=== PATIENT | male | born 1965 | race Two or more races ===

== ENCOUNTER 2021-03-07 06:56 | Outpatient (REF) | payer MEDICARE, SELFPAY ==
[2021-03-07 08:02] LABS: MANUAL DIFF FLAG NO
[2021-03-07 08:07] LABS: Basophils Absolute Auto 0.1 X10*3/uL (0.0-0.2); Basophils Percent Auto 0.8 % (0-2); Eosinophils Absolute Auto 0.3 X10*3/uL (0.0-0.4); Eosinophils Percent Auto 3.2 % (0-4); Hematocrit 40.7 % (42-52); Hemoglobin 13.5 g/dl (14.0-18.0); Imm Gran Abs Auto 0.03 X10*3/uL (0.00-0.03); Imm Gran Pct Auto 0.3 % (0.0-0.4); Lymphocytes Absolute Auto 1.9 X10*3/uL (1.2-4.9); Lymphocytes Percent Auto 20.8 % (20-40); Mean Corpuscular HGB Conc 33.2 g/dl (31.0-36.0); Mean Corpuscular Hemoglobin 28.3 pg (27.0-33.0); Mean Corpuscular Volume 85.3 fL (80-98); Mean Platelet Volume 10.7 fL (9.4-12.4); Monocytes Absolute Auto 0.7 X10*3/uL (0.1-1.2); Monocytes Percent Auto 7.6 % (2-11); Neutrophils Absolute Auto 6.1 X10*3/uL (2.0-8.3); Neutrophils Percent Auto 67.3 % (45-73); Platelet Count 302 X10*3/uL (160-400); Red Blood Count 4.77 X10*6/uL (4.60-5.80); Red Cell Distribution Width 12.8 % (11.0-16.0)
[2021-03-07 08:20] LABS: Estimated Average Glucose 209 mg/dL; Hemoglobin A1c % 8.9 %
[2021-03-07 08:32] LABS: Alanine Aminotransferase 70 U/L (0-40); Albumin Level 4.4 g/dL (3.5-5.0); Alkaline Phosphatase 87 U/L (39-117); Anion Gap 14 (12-20); Aspartate Amino Transferase 38 U/L (5-37); Bilirubin Total 0.3 mg/dL (0.0-1.0); Blood Urea Nitrogen 9 mg/dL (9-16); Calcium 9.7 mg/dL (8.4-10.2); Carbon Dioxide 26 mmol/L (22-29); Chloride 105 mmol/L (96-108); Cholesterol 160 mg/dL; Estimated Glomerular Filt Rate > 60; Glucose Random 132 mg/dL (60-115); HDL Cholesterol 49 mg/dL; LDL Cholesterol Calculated 92 mg/dl; Potassium 4.3 mmol/L (3.3-5.1); Sodium 141 mmol/L (135-145); Total Protein 7.5 g/dL (6.5-8.0); Triglycerides 95 mg/dL
[2021-03-07 08:35] LABS: Creatinine Urine 80.46 mg/dL; Microalbum/Creatinine Ratio Ur 37.2 ug/mg cr
[2021-03-07 08:55] LABS: Free T4 (Free Thyroxine) 1.02 ng/dL (0.71-1.85); Prostate Specific Antigen Scr 0.65 ng/mL (<0.05-4.0); Thyroid Stimulating Hormone 0.92 uIU/mL (0.32-4.0)
[2021-03-07 09:19] LABS: Folate 18.4 ng/mL (> or = 4.0); Vitamin B12 565 pg/mL (200-900)
== END 2021-03-07 06:57 | disposition home or self-care (01) ==
LOC: HO.LAB 06:56
PROVIDERS: PCP Internal Medicine; Visit Provider Internal Medicine
DX: Z12.5 Encounter for screening for malignant neoplasm of prostate (principal); E78.00 Pure hypercholesterolemia, unspecified; I10 Essential (primary) hypertension; E11.65 Type 2 diabetes mellitus with hyperglycemia
CPT/HCPCS: 36415; 80053; 80061; 82043; 82607; 82746; 83036; 84153; 84439; 84443; 85025

== ENCOUNTER 2021-06-12 10:47 | Emergency (ER) | payer MEDICARE, SELFPAY ==
[2021-06-12 11:59] VITALS: BP 155/94; PULSE 96; RESP 16; TEMP 36.3; O2SAT 96; BMI 40.4
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
[2021-06-12 13:05] VITALS: BP 154/88; PULSE 89; RESP 20; TEMP 36.7; O2SAT 96
== END 2021-06-12 13:38 | disposition home or self-care (01) ==
PROVIDERS: Emergency Provider Emergency Medicine; PCP Internal Medicine
DX: M25.511 Pain in right shoulder (principal); M62.838 Other muscle spasm; E11.9 Type 2 diabetes mellitus without complications; I10 Essential (primary) hypertension
CPT/HCPCS: 99283; 99284

== ENCOUNTER → 2021-07-21 08:35 | Outpatient (BNVA) | payer MEDICARE, SELFPAY | PROVIDERS: PCP Internal Medicine; Visit Provider Anesthesiology | DX: S12.501A Unspecified nondisplaced fracture of sixth cervical vertebra, initial encounter for closed fracture (principal); M48.02 Spinal stenosis, cervical region; G89.4 Chronic pain syndrome | CPT/HCPCS: 99202 ==

== ENCOUNTER 2021-08-26 14:00 | Outpatient (RCR) | payer MEDICARE, SELFPAY ==
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
--- NOTE | 2021-09-11 11:29 | MHC.PT.DC ---
[facility] [place] [facility] [place] Office [place] Office [address] Melchor Jose [address] [facility] [phone] F: [phone] F: [phone] F: [phone] F: [phone] Physical Therapy Discharge Report Diagnosis: C6 cervical fracture Date of Surgery: N/A Date of Evaluation: 07/18/21 Date of Discharge: 09/11/21 Treatments to Date: 10 Cancellations to Date: 0 No Shows to Date: 0 Discharge Status: Improved Function Independent with HEP Discharge Summary: The patient reported a significant improvement in the flexibility and mobility of his shoulder and neck. He reported an improvement of his radicular symptoms. He has improved in all of his shoulder active range of motion. He was advised to continue with massage therapy once a month to maintain tissue extensibility. He is independent with his home exercise program. He reported a statistically significant improvement in his self-reported outcome measure, NDI. He is discharged from this physical therapy plan of care to his [facility]. Electronically signed by: Yuly Rosales PT, DPT Please sign and return to therapist. Thank you for your referral.
== END 2021-09-11 11:28 | disposition home or self-care (01) ==
LOC: HO.PT 14:00
PROVIDERS: PCP Internal Medicine; Visit Provider Internal Medicine
DX: S12.501S Unspecified nondisplaced fracture of sixth cervical vertebra, sequela (principal)
CPT/HCPCS: 97110; 97140; 97150; 97162

== ENCOUNTER → 2022-04-24 08:40 | Outpatient (BNVA) | payer MEDICARE, SELFPAY | PROVIDERS: PCP Internal Medicine; Visit Provider Internal Medicine Endocrinology, Diabetes & Metabolism | DX: E11.65 Type 2 diabetes mellitus with hyperglycemia (principal) | CPT/HCPCS: 82947; 83036; 99202 ==

== ENCOUNTER → 2022-04-30 07:56 | Outpatient (BNVA) | payer MEDICARE, SELFPAY | PROVIDERS: PCP Internal Medicine; Visit Provider Registered Nurse Diabetes Educator | DX: E11.65 Type 2 diabetes mellitus with hyperglycemia (principal); Z71.3 Dietary counseling and surveillance | CPT/HCPCS: 99211 ==

== ENCOUNTER 2022-05-05 06:43 | Outpatient (REF) | payer MEDICARE, SELFPAY ==
[2022-05-05 06:58] LABS: MANUAL DIFF FLAG NO
[2022-05-05 07:13] LABS: Basophils Absolute Auto 0.1 X10*3/uL (0.0-0.2); Basophils Percent Auto 0.8 % (0-2); Eosinophils Absolute Auto 0.3 X10*3/uL (0.0-0.4); Eosinophils Percent Auto 3.3 % (0-4); Hematocrit 40.3 % (42.0-52.0); Hemoglobin 13.5 g/dl (14.0-18.0); Imm Gran Abs Auto 0.04 X10*3/uL (0.00-0.03); Imm Gran Pct Auto 0.4 % (0.0-0.4); Lymphocytes Absolute Auto 1.8 X10*3/uL (1.2-4.9); Lymphocytes Percent Auto 19.5 % (20-40); Mean Corpuscular HGB Conc 33.5 g/dl (31.0-36.0); Mean Corpuscular Hemoglobin 28.1 pg (27.0-33.0); Mean Corpuscular Volume 83.8 fL (80.0-98.0); Mean Platelet Volume 10.3 fL (9.4-12.4); Monocytes Absolute Auto 0.6 X10*3/uL (0.1-1.2); Neutrophils Absolute Auto 6.3 x10*3/uL (2.0-8.3); Platelet Count 277 X10*3/uL (160-400); Red Blood Count 4.81 X10*6/uL (4.60-5.80); Red Cell Distribution Width 12.8 % (11.0-16.0); White Blood Count 9.1 X10*3/uL (4.8-10.8)
[2022-05-05 07:21] LABS: Estimated Average Glucose 260 mg/dL; Hemoglobin A1c % 10.7 %
[2022-05-05 07:44] LABS: Alanine Aminotransferase 72 U/L (0-40); Albumin Level 4.3 g/dL (3.5-5.0); Alkaline Phosphatase 87 U/L (39-117); Anion Gap 16 (12-20); Aspartate Amino Transferase 42 U/L (5-37); Bilirubin Total 0.5 mg/dL (0.0-1.0); Blood Urea Nitrogen 11 mg/dL (9-16); Calcium 9.6 mg/dL (8.4-10.2); Carbon Dioxide 26 mmol/L (22-29); Chloride 105 mmol/L (96-108); Cholesterol 155 mg/dL; Estimated Glomerular Filt Rate > 60; Glucose Random 156 mg/dL (60-115); HDL Cholesterol 39 mg/dL; LDL Cholesterol Calculated 100 mg/dl; Potassium 4.2 mmol/L (3.3-5.1); Sodium 143 mmol/L (135-145); Total Protein 7.3 g/dL (6.5-8.0); Triglycerides 81 mg/dL
[2022-05-05 08:00] LABS: Free T4 (Free Thyroxine) 1.15 ng/dL (0.71-1.85); Prostate Specific Antigen Scr 0.64 ng/mL (<0.05-4.0)
[2022-05-05 08:07] LABS: Thyroid Stimulating Hormone 0.92 uIU/mL (0.32-4.0)
[2022-05-05 08:14] LABS: Folate 18.8 ng/mL (> or = 4.0); Vitamin B12 473 pg/mL (200-900)
[2022-05-05 09:27] LABS: Creatinine Urine 188.13 mg/dL; Microalbum/Creatinine Ratio Ur 19.1 ug/mg cr
== END 2022-05-05 06:44 | disposition home or self-care (01) ==
LOC: HO.LAB 06:43
PROVIDERS: Internal Medicine Endocrinology, Diabetes & Metabolism; PCP Internal Medicine; Visit Provider Internal Medicine
DX: Z12.5 Encounter for screening for malignant neoplasm of prostate (principal); E11.65 Type 2 diabetes mellitus with hyperglycemia; I10 Essential (primary) hypertension
CPT/HCPCS: 36415; 80053; 80061; 82043; 82607; 82746; 83036; 84153; 84439; 84443; 85025

== ENCOUNTER 2022-05-13 11:56 | Outpatient (REF) | payer MEDICARE, SELFPAY ==
--- NOTE | ~2022-05-13 | XR_ITS ---
EXAMINATION: XR CERVICAL SPINE CLINICAL INFORMATION: C6 fracture. COMPARISON: Previous MRI June 2013. TECHNIQUE: 3 views of the cervical spine were obtained. FINDINGS: Bone alignment is normal. No fracture or dislocation is seen. There is degenerative spondylosis at C5-C6 and C6-C7. Disc spaces are normal. Prevertebral soft tissues are normal. XR/XR cervical spine 2V IMPRESSION: No fracture is seen by x-ray. Degenerative spondylosis at C5-C6 and C6-C7.
--- NOTE | ~2022-05-13 | XR_ITS ---
EXAMINATION: XR SHOULDER, RIGHT CLINICAL INFORMATION: Pain. COMPARISON: None TECHNIQUE: Three views of the right shoulder. FINDINGS: Bone alignment is normal. No acute fracture or dislocation is seen. There is cortical step-off of the superior lateral humeral head questionable for old Hill-Sachs deformity. The glenohumeral joint is normal. There is mild arthritis at the acromioclavicular joint. Soft tissues are unremarkable. XR/XR shoulder RT min 2V IMPRESSION: Questionable Hill-Sachs deformity of the humeral head. Mild arthritis at the acromioclavicular joint.
== END 2022-05-13 11:57 | disposition home or self-care (01) ==
LOC: HO.XRAY 11:56
PROVIDERS: PCP Internal Medicine; Visit Provider Internal Medicine
DX: S12.501S Unspecified nondisplaced fracture of sixth cervical vertebra, sequela (principal); M25.511 Pain in right shoulder
CPT/HCPCS: 72040; 73030

== ENCOUNTER → 2022-05-28 08:19 | Outpatient (BNVA) | payer MEDICARE, SELFPAY | PROVIDERS: PCP Internal Medicine; Visit Provider Registered Nurse Diabetes Educator | DX: E11.65 Type 2 diabetes mellitus with hyperglycemia (principal) | CPT/HCPCS: 99211 ==

== ENCOUNTER → 2022-06-12 12:51 | Outpatient (BNVA) | payer MEDICARE, SELFPAY | PROVIDERS: PCP Internal Medicine; Visit Provider Registered Nurse Diabetes Educator | DX: E11.65 Type 2 diabetes mellitus with hyperglycemia (principal) | CPT/HCPCS: 95250; 99211 ==

== ENCOUNTER → 2022-06-25 08:56 | Outpatient (BNVA) | payer MEDICARE, SELFPAY | PROVIDERS: PCP Internal Medicine; Visit Provider Registered Nurse Diabetes Educator | DX: E11.65 Type 2 diabetes mellitus with hyperglycemia (principal); Z79.4 Long term (current) use of insulin | CPT/HCPCS: 99211 ==

== ENCOUNTER 2022-08-04 07:44 | Outpatient (REF) | payer MEDICARE, SELFPAY ==
[2022-08-04 08:38] LABS: Anion Gap 14 (12-20); Blood Urea Nitrogen 12 mg/dL (9-16); Calcium 9.7 mg/dL (8.4-10.2); Carbon Dioxide 26 mmol/L (22-29); Chloride 103 mmol/L (96-108); Estimated Glomerular Filt Rate > 60; Glucose Random 168 mg/dL (60-115); Sodium 139 mmol/L (135-145)
== END 2022-08-04 07:45 | disposition home or self-care (01) ==
LOC: HO.LAB 07:44
PROVIDERS: PCP Internal Medicine; Visit Provider Internal Medicine Endocrinology, Diabetes & Metabolism
DX: E11.65 Type 2 diabetes mellitus with hyperglycemia (principal)
CPT/HCPCS: 36415; 80048

== ENCOUNTER → 2022-09-02 13:36 | Outpatient (BNVA) | payer MEDICARE, SELFPAY | PROVIDERS: PCP Internal Medicine; Visit Provider Internal Medicine Endocrinology, Diabetes & Metabolism | DX: E11.65 Type 2 diabetes mellitus with hyperglycemia (principal); Z79.4 Long term (current) use of insulin | CPT/HCPCS: 82947; 83036; 99212 ==

== ENCOUNTER → 2022-09-22 07:51 | Outpatient (BNVA) | payer MEDICARE, SELFPAY | PROVIDERS: PCP Internal Medicine; Visit Provider Registered Nurse Diabetes Educator | DX: E11.65 Type 2 diabetes mellitus with hyperglycemia (principal) | CPT/HCPCS: 99211 ==

== ENCOUNTER → 2022-12-11 09:19 | Outpatient (BNVA) | payer MEDICARE, SELFPAY | PROVIDERS: PCP Internal Medicine; Visit Provider Internal Medicine Endocrinology, Diabetes & Metabolism | DX: E11.65 Type 2 diabetes mellitus with hyperglycemia (principal) | CPT/HCPCS: 82947; 83036; 99212 ==

== ENCOUNTER → 2023-01-19 08:56 | Outpatient (BNVA) | payer MEDICARE, SELFPAY | PROVIDERS: PCP Internal Medicine; Visit Provider Registered Nurse Diabetes Educator | DX: E11.65 Type 2 diabetes mellitus with hyperglycemia (principal) | CPT/HCPCS: 99211 ==

== ENCOUNTER 2023-04-14 11:45 | Outpatient (AMB) | payer MEDICARE, SELFPAY ==
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
== END 2023-04-14 14:52 | disposition home or self-care (01) ==
LOC: HO.HGI 11:45
PROVIDERS: PCP Internal Medicine; Visit Provider Physician Assistant
DX: R19.5 Other fecal abnormalities (principal); Z12.11 Encounter for screening for malignant neoplasm of colon
CPT/HCPCS: 99443

== ENCOUNTER → 2023-04-14 11:45 | Outpatient (BNVA) | payer MEDICARE, SELFPAY | PROVIDERS: PCP Internal Medicine; Visit Provider Physician Assistant ==

== ENCOUNTER 2023-05-03 10:46 | Day surgery (SDC) | payer MEDICARE, SELFPAY ==
[2023-04-29 11:12] VITALS: BMI 38.2
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
[2023-05-03 11:40] VITALS: BP 160/72; PULSE 89; RESP 18; TEMP 36.6; O2SAT 96
--- NOTE | 2023-05-03 11:53 | PC.NURSE ---
report given to narayan fierro rn at this time.
[2023-05-03 11:56] LABS: Glucose, Whole Blood 124 mg/dL (60-115)
--- NOTE | 2023-05-03 12:22 | MHC.SHP ---
Pre-Procedural Eval Section A Date of Service: 05/03/23 The patient is an INPATIENT: No Changes since office visit: Yes Patient answered all questions; No Cold of Flu in the past 2 weeks, No New Medical Problems and No Changes in Medication The History & Physical has been completed within 30 days and I have reviewed it.: Yes Section B Chief Complaint: Other fecal abnormalities Allergies: Allergies Allergy/AdvReac Type Severity Reaction Status Date / Time ibuprofen [IBUPROFEN] Allergy Unknown RASH Verified 04/14/23 11:46 metoprolol Allergy Unknown Unknown Verified 04/14/23 11:46 nabumetone Allergy Unknown Rash Verified 04/14/23 11:46 empagliflozin AdvReac Intermediate rash Verified 04/14/23 11:46 [From Jardiance] pioglitazone AdvReac Intermediate bloated Verified 04/14/23 11:46 lisinopril AdvReac Unknown cough Verified 04/14/23 11:46 Plan I have reviewed the history and physical and performed a pertinent physical examination on my patient. No changes have occurred unless specified. Time Spent With Patient Time: Total time managing care of this patient today ____ minutes.
[2023-05-03] MEDS: Lactated Ringers 1,000 ML 100 ML IVCONT (12:27)
[2023-05-03] MEDS: Metoclopramide HCl 10 MG/2 ML VIAL IVPUSH (12:27)
--- NOTE | 2023-05-03 12:35 | W.PM.OPN ---
Operative Note Operative Note Date of Service: 05/03/23 Narrative: COLONOSCOPY TILL CECUM WITH SNARE POLYPECTOMY AND HEMOCLIP PLACEMENT Pre-op diagnosis: Screening, positive Cologuard test Post-op diagnosis:? Colon polyps, diverticulosis, hemorrhoids Endoscopist:? Pedro Le MD Anesthesia:?MAC Consent: Indications for the procedure and potential complications of bleeding, perforation, reaction to medications and missed diagnosis were discussed with the patient and informed consent was obtained. Instrument: Olympus CF H 190 L variable stiffness adult colonoscope Monitoring: Vital signs and clinical assessment, intermittent blood pressure monitoring, continuous EKG monitoring, Pulse oximetry and Carbon Dioxide monitoring were done throughout the procedure. Please see anesthesia flowsheet. Colon withdrawl time was 18 minutes. Procedure: The patient was placed in the left lateral decubitis position and pre-procedure medications were administered. After a digital rectal examination of the ano-rectum, the video colonoscope was inserted into the rectum and advanced through the colon to the cecum. The colonoscope was slowly withdrawn in a retrograde panoramic fashion and the colon mucosa was carefully examined including a retroflexed view of the rectum. Findings and interventions are described below. Procedure Difficulty: Without difficulty Findings: Terminal Ileum: Not evaluated Cecum: A 10 mm sessile polyp - removed with a stiff hot snare. Ascending Colon: Normal Transverse Colon: A 10 - 12 mm sessile polyp - removed with a stiff hot snare. Descending Colon: Moderate diverticulosis Sigmoid Colon: A 2 cms polyp on a short pedicle at 40 cms - removed with hot snare. Polypectomy site was closed with 1 hemoclip. A 5-6 mm sessile polyp at 40 cms - removed with a cold snare. Moderate diverticulosis Rectum: Normal Ano-rectum: Moderate internal hemorrhoids Colon preparation: Good after copious irrigation and fair in the right colon Impression and Post Procedure Diagnosis: Colonoscopy Findings: One small and three medium sized polyps removed Moderate diverticulosis seen in the left colon Moderate hemorrhoids on retroflexed exam. Plan: I will send a letter with pathology results Repeat Colonoscopy interval based on path results - in 3 years if polyps are adenomatous and due to fair prep. Above findings were reviewed with the patient and colon polyps and diverticulosis handouts were given in the discharge area A. cecal polyp B. transverse colon polyp C. sigmoid colon polyps @ 40 cms (2)
[2023-05-03 13:19] VITALS: BP 90/41; PULSE 89; RESP 20; TEMP 36.7; O2SAT 96
[2023-05-03 13:23] VITALS: BP 93/51; PULSE 95; RESP 20; O2SAT 97
[2023-05-03 13:28] VITALS: BP 100/61; PULSE 89; RESP 20; O2SAT 97
[2023-05-03 13:40] VITALS: BP 108/57; PULSE 89; RESP 20; O2SAT 96
[2023-05-03 13:49] VITALS: BP 145/77; PULSE 87; RESP 16; TEMP 36.2; O2SAT 96
== END 2023-05-03 13:56 | disposition home or self-care (01) ==
PROVIDERS: PCP Internal Medicine; Visit Provider Internal Medicine Gastroenterology
PROC: 0DJD8ZZ Inspection of Lower Intestinal Tract, Via Natural or Artificial Opening Endoscopic (ICD-10-PCS; CPT 45378; principal; 2023-05-03 13:00)
DX: R19.5 Other fecal abnormalities (principal); D12.0 Benign neoplasm of cecum; D12.5 Benign neoplasm of sigmoid colon; K63.5 Polyp of colon; K57.30 Diverticulosis of large intestine without perforation or abscess without bleeding; K64.8 Other hemorrhoids; E11.65 Type 2 diabetes mellitus with hyperglycemia; I10 Essential (primary) hypertension; E78.00 Pure hypercholesterolemia, unspecified; Z79.82 Long term (current) use of aspirin; Z79.4 Long term (current) use of insulin; Z88.8 Allergy status to other drugs, medicaments and biological substances; Z87.891 Personal history of nicotine dependence
CPT/HCPCS: 45385; 82947; 88305; J2765

== ENCOUNTER → 2023-05-03 10:46 | Outpatient (BNV) | payer MEDICARE, SELFPAY | PROVIDERS: PCP Internal Medicine; Visit Provider Internal Medicine Gastroenterology | DX: Z12.11 Encounter for screening for malignant neoplasm of colon (principal); R19.5 Other fecal abnormalities; K57.30 Diverticulosis of large intestine without perforation or abscess without bleeding; K64.8 Other hemorrhoids; D12.0 Benign neoplasm of cecum; D12.3 Benign neoplasm of transverse colon; D12.5 Benign neoplasm of sigmoid colon | CPT/HCPCS: 45385 ==

== ENCOUNTER 2023-05-11 08:43 | Outpatient (AMB) | payer MEDICARE, SELFPAY ==
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
[2023-05-11 08:47] VITALS: BP 132/78; PULSE 80; O2SAT 98; BMI 37.0
== END 2023-05-11 09:17 | disposition home or self-care (01) ==
PROVIDERS: PCP Internal Medicine; Visit Provider Internal Medicine
DX: E11.65 Type 2 diabetes mellitus with hyperglycemia (principal); I10 Essential (primary) hypertension; E66.9 Obesity, unspecified; Z68.37 Body mass index [BMI] 37.0-37.9, adult; E78.00 Pure hypercholesterolemia, unspecified; S12.501S Unspecified nondisplaced fracture of sixth cervical vertebra, sequela; D12.6 Benign neoplasm of colon, unspecified
CPT/HCPCS: 83036; 99214

== ENCOUNTER 2023-05-18 09:02 | Outpatient (AMB) | payer MEDICARE, SELFPAY ==
--- NOTE | 2023-05-18 09:07 | A.OFFVIS_ITS ---
Intake Intake Visit Reasons: DM Allergies ibuprofen [IBUPROFEN] Allergy (Unknown, Verified 05/11/23 08:47) RASH metoprolol Allergy (Unknown, Verified 05/11/23 08:47) Unknown nabumetone Allergy (Unknown, Verified 05/11/23 08:47) Rash empagliflozin [From Jardiance] Adverse Reaction (Intermediate, Verified 05/11/23 08:47) rash pioglitazone Adverse Reaction (Intermediate, Verified 05/11/23 08:47) bloated lisinopril Adverse Reaction (Unknown, Verified 05/11/23 08:47) cough HPI Comprehensive Diabetes Asmnt General History of retinopathy No Date of last retinal or dilated eye exam 05/17/23 Diabetes Eye Exam Yes Retinal eye exam-negative Most Recent Diabetes Results: 2 No Data to Display [facility] Medical History C6 cervical fracture Cervical spinal stenosis Chronic pain syndrome Exposure to COVID-19 virus Hypercholesterolemia Hypertension Migraine Obesity (BMI 30-39.9) Type 2 diabetes mellitus with hyperglycemia Vitamin D deficiency Surgical History History of cholecystectomy Family History Father Diabetes CVD (cardiovascular disease) Stroke Mother Diabetes Cancer Paternal Uncle Myocardial infarction Social History Housing: House Alcohol intake: current Alcohol intake frequency: a few times a month Patient Tobacco Use Status: Former Tobacco user Tobacco use type: Cigarette e-Cigarette/Vaping Use: Never Used Second Hand Smoke Exposure: No service: No Current occupational status: employed Cognitive needs: No Hearing needs: No Vision needs: No Assessment & Plan Assessment & Plan (1) Type 2 diabetes mellitus with hyperglycemia: Comment: [place] [facility], [facility] Code(s): E11.65 - Type 2 diabetes mellitus with hyperglycemia Qualifiers: Diabetes mellitus director long term care insulin use: without director long term care use Qualified Code(s): E11.65 - Type 2 diabetes mellitus with hyperglycemia Plan: Learning objectives: The patient was provided with verbal and written education on the following topics as outlined below. The patient met all learning objectives and was able to verbalize understanding and provide teach back of education topics discussed . The patient was provided with the opportunity to ask questions and all questions were answered. Patient Assessment Assess patient education level/literacy/barriers Patient questions/concerns, patient's A1c has improved to 6.5% on 05/11/2023 from A1c on 12/11/2022 7.9% Patient currently has stopped Ozempic because he cannot afford high co-pay. Patient reports that he has checked with [facility] and he does not qualify for any of their patient assistance program Medications (If applicable) * Name of medication * Dosing/administration instructions * Mechanism of action * Potential side effects * Potential adverse reaction and appropriate treatment * Review onset, peak, duration Assess for concerns re: insurance coverage, cost, barriers to compliance Insulin/Injectables (If applicable) * Storage/care of insulin * Injection sites * Site rotation * Onset, peak, duration * Drawing up insulin * Injecting insulin/other injectables * Sharps disposal Continuous blood glucose monitoring (if applicable) Hypoglycemia and Hyperglycemia * Signs and symptoms * Causes * Treatment * Preventing hypoglycemia * When to seek medical attention Medical alert bracelet Lifestyle * Work * Travel * Stress management * Problem solving Know your goals * A1C * Blood sugar targets * Blood pressure * Cholesterol/LDL Urine microalbumin Educational Materials: The patient was provided with the following written educational materials: AADE screening checklist Patient Response to instructions: Comprehension of Instructions: good Readiness to make changes: action How confident they feel about making changes: Positive Patient Instructions: Test blood sugar as directed; Fasting and 2hpp largest meal. Watch trends in results. Utilize results and to assess how food, physical activity and medications affect blood sugar results. Bring glucometer or CGM to next visit. Be knowledgeable about diabetes medication, its action, side effects, efficacy, toxicity, prescribed dosage, appropriate timing and frequency of administration, effect of missed and delayed doses and instructions for storage, travel and safety. Problem solving techniques to monitor hypo/hyperglycemia episodes and treatments. Reduce risk reduction behaviors, smoking cessation, regular eye, foot and dental examinations. Coding Level of Care Code Est Pt Level 1 (08377) Diagnoses Type 2 diabetes mellitus with hyperglycemia, without long-term current use of insulin E11.65 Diabetes mellitus custodial insulin use: without director long term care use
== END 2023-05-18 09:36 | disposition home or self-care (01) ==
PROVIDERS: PCP Internal Medicine; Referring Provider Internal Medicine Endocrinology, Diabetes & Metabolism; Visit Provider Registered Nurse Diabetes Educator
DX: E11.65 Type 2 diabetes mellitus with hyperglycemia (principal)

== ENCOUNTER → 2023-05-18 09:02 | Outpatient (BNVA) | payer MEDICARE, SELFPAY | PROVIDERS: Visit Provider Registered Nurse Diabetes Educator | DX: E11.65 Type 2 diabetes mellitus with hyperglycemia (principal) | CPT/HCPCS: 99211 ==

== ENCOUNTER 2023-05-21 07:17 | Outpatient (REF) | payer MEDICARE, SELFPAY ==
[2023-05-21 07:36] LABS: MANUAL DIFF FLAG NO
[2023-05-21 08:10] LABS: Basophils Absolute Auto 0.1 X10*3/uL (0.0-0.2); Basophils Percent Auto 0.9 % (0-2); Eosinophils Absolute Auto 0.3 X10*3/uL (0.0-0.4); Eosinophils Percent Auto 3.3 % (0-4); Hematocrit 39.8 % (42.0-52.0); Hemoglobin 13.3 g/dl (14.0-18.0); Imm Gran Abs Auto 0.05 X10*3/uL (0.00-0.03); Imm Gran Pct Auto 0.5 % (0.0-0.4); Lymphocytes Absolute Auto 2.1 X10*3/uL (1.2-4.9); Mean Corpuscular HGB Conc 33.4 g/dl (31.0-36.0); Mean Corpuscular Volume 83.8 fL (80.0-98.0); Mean Platelet Volume 10.4 fL (9.4-12.4); Monocytes Absolute Auto 0.6 X10*3/uL (0.1-1.2); Neutrophils Percent Auto 65.3 % (45-73); Platelet Count 317 X10*3/uL (160-400); Red Blood Count 4.75 X10*6/uL (4.60-5.80); Red Cell Distribution Width 12.7 % (11.0-16.0); White Blood Count 9.2 X10*3/uL (4.8-10.8)
[2023-05-21 08:50] LABS: Alanine Aminotransferase 28 U/L (0-40); Albumin Level 4.3 g/dL (3.5-5.0); Alkaline Phosphatase 93 U/L (39-117); Anion Gap 14 (12-20); Aspartate Amino Transferase 26 U/L (5-37); Bilirubin Total 0.4 mg/dL (0.0-1.0); Blood Urea Nitrogen 12 mg/dL (9-16); Calcium 9.6 mg/dL (8.4-10.2); Carbon Dioxide 26 mmol/L (22-29); Chloride 106 mmol/L (96-108); Cholesterol 149 mg/dL (<200); Estimated Glomerular Filt Rate > 60; Glucose Random 102 mg/dL (60-115); HDL Cholesterol 41 mg/dL (>40); LDL Cholesterol Calculated 96 mg/dL (<100); Potassium 3.7 mmol/L (3.3-5.1); Sodium 142 mmol/L (135-145); Total Protein 7.5 g/dL (6.5-8.0); Triglycerides 62 mg/dL (<150)
[2023-05-21 09:11] LABS: Free T4 (Free Thyroxine) 0.88 ng/dL (0.71-1.85); Thyroid Stimulating Hormone 1.11 uIU/mL (0.32-4.0)
[2023-05-21 09:18] LABS: Folate 14.4 ng/mL (> or = 4.0); Prostate Specific Antigen Scr 0.69 ng/mL (<0.05-4.0); Vitamin B12 533 pg/mL (200-900)
[2023-05-21 11:18] LABS: Creatinine Urine 195.56 mg/dL; Microalbum/Creatinine Ratio Ur 6.1 ug/mg cr (<30)
== END 2023-05-21 07:18 | disposition home or self-care (01) ==
LOC: HO.LAB 07:17
PROVIDERS: PCP Internal Medicine; Visit Provider Internal Medicine
DX: E11.65 Type 2 diabetes mellitus with hyperglycemia (principal); E78.00 Pure hypercholesterolemia, unspecified; Z12.5 Encounter for screening for malignant neoplasm of prostate
CPT/HCPCS: 36415; 80053; 80061; 82043; 82570; 82607; 82746; 84153; 84439; 84443; 85025

== ENCOUNTER 2023-06-04 11:25 | Outpatient (AMB) | payer MEDICARE, SELFPAY ==
--- NOTE | 2023-06-04 11:26 | MHC.OFFVIS ---
Intake Vital Signs 06/04/23 11:27 Height 5 ft 11 in Weight 271 lb 2.697 oz BMI 37.8 BP 130/76 Blood Pressure Location Lt brachial Position Sitting Pulse 89 Pulse Source Pulse Oximeter Intake Visit Reasons: DM/ Unable to reach Intake Note: Patient present today to follow up on Type 2 Diabetes Mellitus. Last Diabetic Eye exam: 05/11/2023 Last Podiatry Visit: None Random Glucose: 75 mg/dl HgA1C: 6.5% 05/11/23 Machine Cleaner Required: No Accompanied by: Self / Same As Patient Allergies ibuprofen [IBUPROFEN] Allergy (Unknown, Verified 06/04/23 11:32) RASH metoprolol Allergy (Unknown, Verified 06/04/23 11:32) Unknown nabumetone Allergy (Unknown, Verified 06/04/23 11:32) Rash empagliflozin [From Jardiance] Adverse Reaction (Intermediate, Verified 06/04/23 11:32) rash pioglitazone Adverse Reaction (Intermediate, Verified 06/04/23 11:32) bloated lisinopril Adverse Reaction (Unknown, Verified 06/04/23 11:32) cough HPI HPI Comments History of Present Illness Details 57 YO M who is seen in consultation for T2DM at the request of PCP. Initially diagnosed with T2DM in 15 yrs ago . Was initially started on treatment with metformin . Current regimen . metformin 1000 mg BID glimeprimide 4 mg Basaglar 24 units Ozempic 0.5 mg Qwkly stopped can't afford Has taken Jardiance developed rash and Actos bloating . Couldn't afford [employer] Glucometer download shows she is checking his point cares twice a day. Ranges 54 to 13 with average glucose of 133. Standard deviation is 38. 85% range with 12% hyperglycemia and 3% hypoglycemia rare hypoglycemia Family history of T2DM in mother, father , grandmother Type 2 . Has eyes checked yearly, last eye exam this mo , denies retinopathy. Denies neuropathy, last foot exam , does not sees podiatry. Denies nephropathy, on ALIVN/ARB. Has HLD, on statin. Denies CAD. Had diabetes education. [facility] Medical History C6 cervical fracture Cervical spinal stenosis Chronic pain syndrome Exposure to COVID-19 virus Hypercholesterolemia Hypertension Migraine Obesity (BMI 30-39.9) Type 2 diabetes mellitus with hyperglycemia Vitamin D deficiency Surgical History History of cholecystectomy Family History Father Diabetes CVD (cardiovascular disease) Stroke Mother Diabetes Cancer Paternal Uncle Myocardial infarction Social History Housing: House Alcohol intake: current Alcohol intake frequency: a few times a month Patient Tobacco Use Status: Former Tobacco user Tobacco use type: Cigarette e-Cigarette/Vaping Use: Never Used Second Hand Smoke Exposure: No service: No Current occupational status: employed Cognitive needs: No Hearing needs: No Vision needs: No Physical Exam Vital Signs: Last Vital Signs Pulse 89 06/04/23 11:27 BP 130/76 06/04/23 11:27 BMI result Body Mass Index 37.8 Absence of Cushingoid features. Absence of acromegalic features. Neck exam reveals nl size thyroid about 15 gms. No thyroid nodules palpable. No carotid bruits present. Lungs CTA. Heart S1 S2, Reg R/R. No M/R/ G. Skin exam reveals absence of vitiligo or acanthosis nigricans. Abdominal exam reveals Soft NT/ND with NA BS. No organomegaly present. Neck Other: . Extrem Other: Visual exam of foot performed. No ulcerations or open lesions. No onchomycosis, no callouses.Pulses 2 + distally Sensation intact to monofilament exam. Vibratory sensation sensed is intact with 128 Hz tuning fork Results Reviewed Results Reviewed: 06/04/23 11:35 Glucose, Whole Blood Routine Laboratory Last Values Glucose (Clinic) 75 mg/dL (60-115) 06/04/23 11:35 Assessment & Plan Assessment & Plan (1) Type 2 diabetes mellitus with hyperglycemia: Comment: [place] [facility], [facility] Code(s): E11.65 - Type 2 diabetes mellitus with hyperglycemia Qualifiers: Diabetes mellitus penitentiary insulin use: without long term care pharmacist use Qualified Code(s): E11.65 - Type 2 diabetes mellitus with hyperglycemia Plan: This is a 57-year-old male with a history of type 2 diabetes being treated with metformin and basal insulin with excellent glycemic control and no known microvascular or macrovascular complications. Plan is to continue the current therapy. At this point, patient returned to the care of his primary care provider and return back to endocrinology should his HbA1c deteriorate Coding Level of Care Code Est Pt Level 3 (32153) Diagnoses Type 2 diabetes mellitus with hyperglycemia, without long-term current use of insulin E11.65 Diabetes mellitus penitentiary insulin use: without long term care pharmacist use
[2023-06-04 11:27] VITALS: BP 130/76; PULSE 89; BMI 37.8
[2023-06-04 11:39] LABS: Glucose, Whole Blood 75 mg/dL (60-115)
== END 2023-06-04 11:49 | disposition home or self-care (01) ==
PROVIDERS: PCP Internal Medicine; Visit Provider Internal Medicine Endocrinology, Diabetes & Metabolism
DX: E11.65 Type 2 diabetes mellitus with hyperglycemia (principal)
CPT/HCPCS: 99213

== ENCOUNTER → 2023-06-04 11:25 | Outpatient (BNVA) | payer MEDICARE, SELFPAY | PROVIDERS: PCP Internal Medicine; Visit Provider Internal Medicine Endocrinology, Diabetes & Metabolism | DX: E11.65 Type 2 diabetes mellitus with hyperglycemia (principal) | CPT/HCPCS: 82947; 99212 ==

== ENCOUNTER 2023-08-16 15:51 | Outpatient (AMB) | payer MEDICARE, SELFPAY ==
[2023-08-16 15:54] VITALS: BP 140/82; PULSE 81; O2SAT 100; BMI 37.8
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
[2023-08-16 16:25] VITALS: BP 132/70
== END 2023-08-16 16:31 | disposition home or self-care (01) ==
PROVIDERS: PCP Internal Medicine; Visit Provider Internal Medicine
DX: E11.65 Type 2 diabetes mellitus with hyperglycemia (principal); I10 Essential (primary) hypertension; E66.9 Obesity, unspecified; Z68.37 Body mass index [BMI] 37.0-37.9, adult; E78.00 Pure hypercholesterolemia, unspecified; S12.501S Unspecified nondisplaced fracture of sixth cervical vertebra, sequela
CPT/HCPCS: 83036; 99214

== ENCOUNTER 2023-10-16 18:16 | Emergency (ER) | payer MEDICARE, SELFPAY ==
[2023-10-16 18:21] VITALS: BP 182/73; PULSE 87; RESP 20; TEMP 37; O2SAT 96; BMI 39.7
--- NOTE | 2023-10-16 18:21 | ED_ITS ---
HPI - General Adult General Chief complaint: Eye Problems Stated complaint: RT eye injury? Time Seen by Provider: 10/16/23 20:13 Source: patient Mode of arrival: ambulatory Limitations: no limitations History of Present Illness HPI narrative: Patient is a 57 year old male who presents emergency department for evaluation of right eye foreign body sensation upon awakening this morning. Denies any known trauma, contact lenses, or known foreign body exposure. Vision is blurry. Denies any headache, dizziness, lightheadedness, neck pain, fevers, chills. Related Data Home Medications Medication Instructions Recorded Confirmed aspirin 81 mg tablet,delayed 81 mg PO DAILY 09/10/20 08/16/23 release (Adult Aspirin Regimen) cholecalciferol (vitamin D3) 1,250 1,250 mcg PO QWEEK 09/10/20 08/16/23 mcg (50,000 unit) capsule diclofenac sodium 1 % topical gel 2 g topical QID 09/10/20 08/16/23 (Voltaren) gabapentin 800 mg tablet 800 mg PO BID 09/10/20 08/16/23 indomethacin 50 mg capsule 50 mg PO BID 09/10/20 08/16/23 lidocaine 5 % topical patch 1 patch topical DAILY 09/10/20 08/16/23 Previous Rx's Medication Instructions Recorded baclofen 10 mg tablet 10 mg PO TID #270 tabs 08/27/20 diazepam 5 mg tablet (Valium) 5 mg PO BEDTIME PRN muscle spasm 06/12/21 #5 tabs flash glucose scanning reader #1 ea 10/20/21 ([employer]Style Jj 14 Day Sims) flash glucose sensor ([employer]om[employer] #6 kits 10/20/21 Jj 14 Day Sensor kit) albuterol sulfate 90 mcg/actuation 2 puff inhalation Q6H PRN 12/22/21 aerosol inhaler (ProAir HFA) shortness of breath or wheezing #8.5 grams blood sugar diagnostic (OneTouch #2 boxes 07/22/22 Verio test strips) blood sugar diagnostic (OneTouch #100 ea 08/10/22 Ultra Test strips) blood-glucose meter (OneTouch #1 ea 09/22/22 Verio Flex Meter) lancets (OneTouch UltraSoft #100 ea 09/22/22 Lancets) metformin 1,000 mg tablet 1,000 mg PO BID 90 days #180 tabs 03/21/23 hydrochlorothiazide 12.5 mg tablet 12.5 mg PO QAM #90 tabs 04/04/23 clotrimazole 1 % topical cream 1 appl topical BID 4 weeks #30 05/22/23 grams blood sugar diagnostic (OneTouch #100 strips 05/25/23 Verio test strips) pen needle, diabetic 32 gauge x #100 ea 08/09/23 (BD Dora 2nd Gen Pen Needle) pen needle, diabetic 29 gauge x #100 ea 08/11/2309/07 (BD Ultra-Fine Original Pen Needle) oxycodone 5 mg tablet 5 mg PO Q6H PRN pain #30 tabs 08/16/23 atorvastatin 10 mg tablet 10 mg PO DAILY #90 tabs 09/13/23 losartan 100 mg tablet 100 mg PO DAILY #90 tabs 09/17/23 insulin glargine 100 unit/mL (3 24 unit (0.24 mL) subcut QAM 30 10/14/23 mL) subcutaneous pen ( #7.2 mL KwikPen U-100 Insulin) ofloxacin 0.3 % eye drops 2 drp ophthalmic (eye) QID 5 days 10/16/23 #5 mL Allergies Allergy/AdvReac Type Severity Reaction Status Date / Time ibuprofen [IBUPROFEN] Allergy Unknown RASH Verified 10/16/23 18:23 metoprolol Allergy Unknown Unknown Verified 10/16/23 18:23 nabumetone Allergy Unknown Rash Verified 10/16/23 18:23 empagliflozin AdvReac Intermediate rash Verified 10/16/23 18:23 [From Jardiance] pioglitazone AdvReac Intermediate bloated Verified 10/16/23 18:23 lisinopril AdvReac Unknown cough Verified 10/16/23 18:23 Review of Systems Review of Systems: Yes all other systems are reviewed and are negative [facility] Past Medical History Attestation statement: The following information was validated with the patient. Source: old records reviewed Medical History Chronic pain syndrome Cervical spinal stenosis Exposure to COVID-19 virus C6 cervical fracture Migraine Type 2 diabetes mellitus with hyperglycemia Hypercholesterolemia Hypertension Obesity (BMI 30-39.9) Vitamin D deficiency Surgical History History of cholecystectomy Family History Family History Father Diabetes CVD (cardiovascular disease) Stroke Mother Diabetes Cancer Paternal Uncle Myocardial infarction Social History Social History Housing: House Alcohol intake: current Alcohol intake frequency: a few times a month Patient Tobacco Use Status: Former Tobacco user Tobacco use type: Cigarette e-Cigarette/Vaping Use: Never Used Second Hand Smoke Exposure: No Advance Directives: No Advance Directives Information Provided: No service: No Current occupational status: employed Cognitive needs: No Hearing needs: No Vision needs: No Physical Exam ED Vital Signs: Vital Signs - 24 hr 10/16/23 18:21 Temperature 98.6 F Pulse Rate 87 Respiratory Rate 20 Blood Pressure 182/73 H Pulse Oximetry 96 Oxygen Delivery Method Room Air BMI result Body Mass Index 39.7 Appearance: Alert.?Oriented to person, place and time. No acute distress.?Normal affect. Eyes: Pupils equal, round and reactive to light.? EOMI. No nystagmus. Fluorescein uptake at 01:00 o'clock over the iris. IOP 14 right, 15 left Neck: Normal inspection.? Neck supple.?? CVS: Heart sounds normal. Normal heart rate and rhythm.? Pulses normal.?? Respiratory: No respiratory distress.? Lung sounds clear to auscultation bilaterally??? Skin: Skin warm and dry.? Normal skin color.? Neuro: Moves all extremities spontaneously. Sensation intact bilaterally. CN II-XII intact. No focal neuro deficits. Ambulates with normal steady gait. Medical Decision Making Medical Decision Making MDM Narrative: Patient is a 57-year-old male presents emergency department for evaluation of foreign body sensation to the right eye with blurred vision, sudden onset this morning upon awakening. Visual acuity 20/20 on left, 20/25 on right. Normal intra-ocular pressure. Exam consistent with corneal abrasion, non contact lens wear, sent prescription for ofloxacin drops to pharmacy and advised outpatient follow-up with Ophthalmology. History and physical examination not consistent with acute angle glaucoma, orbital cellulitis, scleritis, uveitis. Stable for discharge. Differential Diagnosis Differential Diagnoses: The differential diagnosis associated with the presentation includes (See narrative above) Admission/Observation Consideration of admission/observation: Escalation of care including admission/observation considered (See narrative above) Independent Historian Clinical information obtained from an independent historian. History obtained from or confirmed by: Spouse (Present who confirms history) Prescription Management I considered prescription management with: Antibiotic Discharge Plan Discharge Clinical Impression: Corneal abrasion Patient Disposition: Home, Self-Care Instructions: Corneal Abrasion (ED) Additional Instructions: It is important that you follow-up with an eye doctor. You may contact your eye doctor to arrange for follow-up or use the contact information for Dr. Amato. Take antibiotic eyedrops as prescribed. Avoid rubbing at the eye as this will worsen the condition. Return back to emergency department any new or worsening symptoms or concerns. Prescriptions: New ofloxacin 0.3 % drops 2 drp ophthalmic (eye) QID 5 Days Qty: 5 0RF No Action baclofen 10 mg tablet 10 mg PO TID Qty: 270 1RF albuterol sulfate [ProAir HFA] 90 mcg/actuation HFA aerosol inhaler 2 puff inhalation Q6H PRN (Reason: shortness of breath or wheezing) Qty: 8.5 0RF (DME) OneTouch Verio test strips Strip See Rx Instructions .Route Qty: 2 3RF Rx Instructions: As directed check the BS BID (DME) OneTouch Ultra Test Strip See Rx Instructions .ROUTE .MEDSUPPLY Qty: 100 5RF Rx Instructions: As directed twice a day (DME) blood-glucose meter [OneTouch Verio Flex meter] [facility] [place] Rx Instructions .Route Qty: 1 0RF Rx Instructions: As directed tests 4 X/day (DME) lancets [OneTouch UltraSoft Lancets] [facility] [place] See Rx Instructions .Route Qty: 100 4RF Rx Instructions: As directed tests 4 X/day metformin 1,000 mg tablet 1,000 mg PO BID 90 Days Qty: 180 2RF hydrochlorothiazide 12.5 mg tablet 12.5 mg PO QAM Qty: 90 3RF clotrimazole 1 % cream 1 appl topical BID 28 Days Qty: 30 3RF (DME) OneTouch Verio test strips Strip See Rx Instructions .ROUTE .COMPLEX Qty: 100 6RF Dose Instruction: USE TO TEST 4 TIMES DAILY DIRECTED Rx Instructions: USE TO TEST 3 TIMES DAILY DIRECTED (DME) pen needle, diabetic [BD Dora 2nd Gen Pen Needle] 32 gauge x 5/32 needle See Rx Instructions .ROUTE .COMPLEX Qty: 100 5RF Dose Instruction: USE DIRECTED ONCE DAILY Rx Instructions: USE DIRECTED ONCE DAILY (DME) pen needle, diabetic [BD Ultra-Fine Orig Pen Needle] 29 gauge x 1/2 needle See Rx Instructions .Route Qty: 100 4RF Rx Instructions: test once per day atorvastatin 10 mg tablet 10 mg PO DAILY Qty: 90 3RF losartan 100 mg tablet 100 mg PO DAILY Qty: 90 2RF insulin glargine [Basaglar KwikPen U-100 Insulin] 100 unit/mL (3 mL) insulin pen 24 unit subcut QAM 30 Days Qty: 7.2 4RF diazepam [Valium] 5 mg tablet 5 mg PO BEDTIME PRN (Reason: muscle spasm) Qty: 5 0RF diclofenac sodium [Voltaren] 1 % gel 2 g topical QID Rx Instructions: apply to single elbow, wrist or hand; for hand includes palm/fingers/back of hand cholecalciferol (vitamin D3) 1,250 mcg (50,000 unit) capsule 1,250 mcg PO QWEEK lidocaine 5 % adhesive patch,medicated 1 patch topical DAILY Rx Instructions: leave on most painful area for up to 12 hrs gabapentin 800 mg tablet 800 mg PO BID indomethacin 50 mg capsule 50 mg PO BID Rx Instructions: administer with food or milk aspirin [Adult Aspirin Regimen] 81 mg tablet,delayed release (DR/EC) 81 mg PO DAILY oxycodone 5 mg tablet 5 mg PO Q6H PRN (Reason: pain) Qty: 30 0RF (DME) FreeStyle Jj 14 Day Sims Misc See Rx Instructions .ROUTE .MEDSUPPLY Qty: 1 0RF Rx Instructions: As directed (DME) FreeStyle Jj 14 Day Sensor Kit See Rx Instructions .ROUTE .MEDSUPPLY Qty: 6 3RF Rx Instructions: As directed Referrals: Erasto Amato [Physician] - Po,Martin Duarte MD [Primary Care Provider] -
[2023-10-16] MEDS: Fluorescein Sodium STRIP 1 STRIP EYE-RIGHT (20:47)
[2023-10-16] MEDS: Tetracaine HCl/PF 0.5% Oph Sol 4 ML DROPS 1 DROP EYE-RIGHT (20:47)
== END 2023-10-16 20:48 | disposition home or self-care (01) ==
PROVIDERS: Emergency Provider Emergency Medicine; PCP Internal Medicine
DX: S05.01XA Injury of conjunctiva and corneal abrasion without foreign body, right eye, initial encounter (principal); X58.XXXA Exposure to other specified factors, initial encounter; H53.8 Other visual disturbances; Y93.9 Activity, unspecified; Y92.9 Unspecified place or not applicable; Y99.9 Unspecified external cause status
CPT/HCPCS: 99282; 99283

== ENCOUNTER 2023-11-16 09:50 | Outpatient (AMB) | payer MEDICARE, SELFPAY ==
[2023-11-16 10:19] VITALS: BP 136/72; PULSE 80; O2SAT 98; BMI 38.1
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
== END 2023-11-16 11:02 | disposition home or self-care (01) ==
PROVIDERS: PCP Internal Medicine; Visit Provider Internal Medicine
DX: E11.65 Type 2 diabetes mellitus with hyperglycemia (principal); E78.00 Pure hypercholesterolemia, unspecified; I10 Essential (primary) hypertension; S05.00XA Injury of conjunctiva and corneal abrasion without foreign body, unspecified eye, initial encounter; S12.501S Unspecified nondisplaced fracture of sixth cervical vertebra, sequela; M77.12 Lateral epicondylitis, left elbow; N48.1 Balanitis
CPT/HCPCS: 83036; 99214

== ENCOUNTER 2023-12-29 09:51 | Outpatient (AMB) | payer MEDICARE, SELFPAY ==
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
[2023-12-29 10:13] VITALS: BMI 38.1
== END 2023-12-29 10:50 | disposition home or self-care (01) ==
PROVIDERS: PCP Internal Medicine; Visit Provider Physician Assistant
DX: M77.12 Lateral epicondylitis, left elbow (principal)
CPT/HCPCS: 20550; 99203

== ENCOUNTER → 2023-12-29 09:51 | Outpatient (BNVA) | payer MEDICARE, SELFPAY | PROVIDERS: PCP Internal Medicine; Visit Provider Physician Assistant | DX: M77.12 Lateral epicondylitis, left elbow (principal) | CPT/HCPCS: 20550; 99202; J1100 ==

== ENCOUNTER 2024-03-07 09:57 | Outpatient (AMB) | payer MEDICARE, SELFPAY ==
[2024-03-07 10:01] VITALS: BP 140/88; PULSE 81; O2SAT 98; BMI 37.5
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
[2024-03-07 10:41] VITALS: BP 130/80
== END 2024-03-07 10:49 | disposition home or self-care (01) ==
PROVIDERS: PCP Internal Medicine; Visit Provider Internal Medicine
DX: E11.65 Type 2 diabetes mellitus with hyperglycemia (principal); I10 Essential (primary) hypertension; E78.00 Pure hypercholesterolemia, unspecified; L30.9 Dermatitis, unspecified; S12.501S Unspecified nondisplaced fracture of sixth cervical vertebra, sequela
CPT/HCPCS: 83036; 99214

== ENCOUNTER 2024-07-04 07:18 | Outpatient (REF) | payer MEDICARE, SELFPAY ==
[2024-07-04 07:31] LABS: MANUAL DIFF FLAG NO
[2024-07-04 07:39] LABS: Basophils Absolute Auto 0.1 X10*3/uL (0.0-0.2); Basophils Percent Auto 0.9 % (0-2); Eosinophils Absolute Auto 0.2 X10*3/uL (0.0-0.4); Eosinophils Percent Auto 2.8 % (0-4); Hematocrit 41.4 % (42.0-52.0); Hemoglobin 14.2 g/dl (14.0-18.0); Imm Gran Abs Auto 0.03 X10*3/uL (0.00-0.03); Imm Gran Pct Auto 0.4 % (0.0-0.4); Lymphocytes Absolute Auto 1.8 X10*3/uL (1.2-4.9); Lymphocytes Percent Auto 22.3 % (20-40); Mean Corpuscular HGB Conc 34.3 g/dl (31.0-36.0); Mean Corpuscular Hemoglobin 28.7 pg (27.0-33.0); Mean Corpuscular Volume 83.6 fL (80.0-98.0); Mean Platelet Volume 9.8 fL (9.4-12.4); Monocytes Absolute Auto 0.6 X10*3/uL (0.1-1.2); Monocytes Percent Auto 7.9 % (2-11); Neutrophils Absolute Auto 5.2 x10*3/uL (2.0-8.3); Neutrophils Percent Auto 65.7 % (45-73); Platelet Count 292 X10*3/uL (160-400); Red Blood Count 4.95 X10*6/uL (4.60-5.80); Red Cell Distribution Width 12.4 % (11.0-16.0); White Blood Count 7.8 X10*3/uL (4.8-10.8)
[2024-07-04 08:08] LABS: Estimated Average Glucose 171 mg/dL; Hemoglobin A1C 219.7778 umol/L; Hemoglobin A1c % 7.6 % (<6.0); Total Hemoglobin (HGBA1C) 3710.9308 umol/L
[2024-07-04 08:22] LABS: Alanine Aminotransferase 33 U/L (0-40); Albumin Level 4.3 g/dL (3.5-5.0); Alkaline Phosphatase 89 U/L (39-117); Anion Gap 14 (12-20); Aspartate Amino Transferase 31 U/L (5-37); Bilirubin Total 0.6 mg/dL (0.0-1.0); Blood Urea Nitrogen 13 mg/dL (9-16); Calcium 9.3 mg/dL (8.4-10.2); Carbon Dioxide 26 mmol/L (22-29); Chloride 105 mmol/L (96-108); Cholesterol 173 mg/dL (<200); Estimated Glomerular Filt Rate > 60; Glucose Random 157 mg/dL (60-115); HDL Cholesterol 43 mg/dL (>40); LDL Cholesterol Calculated 112 mg/dL (<100); Potassium 3.9 mmol/L (3.3-5.1); Sodium 141 mmol/L (135-145); Total Protein 7.5 g/dL (6.5-8.0); Triglycerides 92 mg/dL (<150)
[2024-07-04 08:28] LABS: Free T4 (Free Thyroxine) 1.12 ng/dL (0.71-1.85); Thyroid Stimulating Hormone 1.46 uIU/mL (0.32-4.0)
[2024-07-04 08:47] LABS: Folate 14.3 ng/mL (> or = 4.0); Vitamin B12 529 pg/mL (200-900)
[2024-07-06 14:28] LABS: Prot Elec - Albumin 4.3 g/dL (3.8-4.8); Prot Elec - Alpha1 0.2 g/dL (0.2-0.3); Prot Elec - Alpha2 0.8 g/dL (0.5-0.9); Prot Elec - Beta 1 0.5 g/dL (0.4-0.6); Prot Elec - Beta 2 0.4 g/dL (0.2-0.5); Prot Elec - Gamma 1.1 g/dL (0.8-1.7); Prot Elec - Total Protein 7.2 g/dL (6.1-8.1)
== END 2024-07-04 07:19 | disposition home or self-care (01) ==
LOC: HO.LAB 07:18
PROVIDERS: PCP Internal Medicine; Visit Provider Internal Medicine
DX: E11.65 Type 2 diabetes mellitus with hyperglycemia (principal); R79.89 Other specified abnormal findings of blood chemistry; E78.00 Pure hypercholesterolemia, unspecified
CPT/HCPCS: 36415; 80053; 80061; 82607; 82746; 83036; 84165; 84439; 84443; 85025

== ENCOUNTER 2024-07-17 09:53 | Outpatient (AMB) | payer MEDICARE, SELFPAY ==
[2024-07-17 09:54] VITALS: BP 126/72; PULSE 79; O2SAT 96; BMI 37.7
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
== END 2024-07-17 10:47 | disposition home or self-care (01) ==
PROVIDERS: PCP Internal Medicine; Visit Provider Internal Medicine
DX: E11.65 Type 2 diabetes mellitus with hyperglycemia (principal); E66.9 Obesity, unspecified; Z68.37 Body mass index [BMI] 37.0-37.9, adult; I10 Essential (primary) hypertension; E78.00 Pure hypercholesterolemia, unspecified; S12.501S Unspecified nondisplaced fracture of sixth cervical vertebra, sequela

== ENCOUNTER → 2024-07-17 09:53 | Outpatient (BNVA) | payer MEDICARE, SELFPAY | PROVIDERS: PCP Internal Medicine; Visit Provider Internal Medicine | DX: Z23 Encounter for immunization (principal); E11.65 Type 2 diabetes mellitus with hyperglycemia; E66.9 Obesity, unspecified; I10 Essential (primary) hypertension; E78.00 Pure hypercholesterolemia, unspecified; S12.501S Unspecified nondisplaced fracture of sixth cervical vertebra, sequela | CPT/HCPCS: 90471; 90715; 96127; 99212 ==

== ENCOUNTER 2024-10-26 06:16 | Outpatient (REF) | payer MEDICARE, SELFPAY ==
[2024-10-26 07:32] LABS: Estimated Average Glucose 140 mg/dL; Hemoglobin A1C 174.0088 umol/L; Hemoglobin A1c % 6.5 % (<6.0); Total Hemoglobin (HGBA1C) 3628.3204 umol/L
[2024-10-26 07:40] LABS: Alanine Aminotransferase 54 U/L (0-40); Albumin Level 4.3 g/dL (3.5-5.0); Alkaline Phosphatase 99 U/L (39-117); Anion Gap 12 (12-20); Aspartate Amino Transferase 34 U/L (5-37); Bilirubin Total 0.3 mg/dL (0.0-1.0); Blood Urea Nitrogen 11 mg/dL (9-16); Calcium 9.1 mg/dL (8.4-10.2); Carbon Dioxide 28 mmol/L (22-29); Chloride 105 mmol/L (96-108); Cholesterol 149 mg/dL (<200); Estimated Glomerular Filt Rate > 60; Glucose Random 110 mg/dL (60-115); HDL Cholesterol 39 mg/dL (>40); LDL Cholesterol Calculated 87 mg/dL (<100); Potassium 3.9 mmol/L (3.3-5.1); Sodium 141 mmol/L (135-145); Total Protein 7.8 g/dL (6.5-8.0); Triglycerides 118 mg/dL (<150)
== END 2024-10-26 06:17 | disposition home or self-care (01) ==
LOC: HO.LAB 06:16
PROVIDERS: PCP Internal Medicine; Visit Provider Internal Medicine
DX: E78.00 Pure hypercholesterolemia, unspecified (principal); Z13.1 Encounter for screening for diabetes mellitus
CPT/HCPCS: 36415; 80053; 80061; 83036

== ENCOUNTER 2024-10-31 09:25 | Outpatient (AMB) | payer MEDICARE, SELFPAY ==
--- NOTE | 2024-10-31 09:44 | A.OFFPC_ITS ---
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 Required: No Accompanied by: Self / Same As Patient Allergies ibuprofen [IBUPROFEN] Allergy (Unknown, Verified 10/31/24 09:45) RASH metoprolol Allergy (Unknown, Verified 10/31/24 09:45) Unknown nabumetone Allergy (Unknown, Verified 10/31/24 09:45) Rash empagliflozin [From Jardiance] Adverse Reaction (Intermediate, Verified 10/31/24 09:45) rash pioglitazone Adverse Reaction (Intermediate, Verified 10/31/24 09:45) bloated lisinopril Adverse Reaction (Unknown, Verified 10/31/24 09:45) cough Medication List - Last Reconciled 10/31/24 by Martin Cleary MD albuterol sulfate 90 mcg/actuation (ProAir HFA) 2 puffs inhalation Q6H PRN aspirin (Adult Aspirin Regimen) 81 mg PO DAILY atorvastatin 10 mg PO DAILY baclofen 10 mg PO TID blood sugar diagnostic ([employer] Verio test strips) As directed check the BS BID blood sugar diagnostic (OneTouch Ultra Test strips) As directed twice a day blood sugar diagnostic (OneTouch Verio test strips) USE TO TEST 3 TIMES DAILY DIRECTED blood-glucose meter ([employer] Verio Flex Meter) As directed tests 4 X/day cholecalciferol (vitamin D3) 1,250 mcg PO QWEEK diazepam (Valium) 5 mg PO BEDTIME PRN diclofenac sodium 1% (Voltaren) 2 grams topical QID flash glucose scanning reader (LinchpinStyle Jj 14 Day [place]) As directed flash glucose sensor (FreeStyle Jj 14 Day Sensor kit) As directed gabapentin 800 mg PO BID hydrochlorothiazide 12.5 mg PO QAM indomethacin 50 mg PO BID insulin glargine (Basaglar KwikPen U-100 Insulin) 27 units (0.27 mL) subcut QAM 30 days lancets ([employer] UltraSoft Lancets) As directed tests 4 X/day lidocaine 5% 1 patch topical DAILY losartan 100 mg PO DAILY metformin 1,000 mg PO BID 90 days oxycodone 5 mg PO Q6H PRN pen needle, diabetic (BD Ultra-Fine Original Pen Needle) test once per day pen needle, diabetic (BD Dora 2nd Gen Pen Needle) USE DIRECTED ONCE DAILY semaglutide (Ozempic) 1 mg (0.75 mL) subcut QWEEK triamcinolone acetonide 0.5% 1 appl topical BID 14 days Tobacco use date assessed: 10/31/24 Dental Screening Dental Screen Date: 10/31/24 Did you have a dental visit in the last 12 months?: Yes Did you have a dental problem in the last 6 months where you did not have access to dental care?: No Was dental information given to patient?: Patient has dentist [facility] Medical History (Updated 07/17/24 @ 10:27 by Martin Cleary MD) Corneal abrasion Chronic pain syndrome Cervical spinal stenosis Exposure to COVID-19 virus C6 cervical fracture Migraine Type 2 diabetes mellitus with hyperglycemia Hypercholesterolemia Hypertension Obesity (BMI 30-39.9) Vitamin D deficiency Surgical History History of cholecystectomy Family History Father Diabetes CVD (cardiovascular disease) Stroke Mother Diabetes Cancer Paternal Uncle Myocardial infarction Social History Housing: House Alcohol intake: current Alcohol intake frequency: a few times a month Patient Tobacco Use Status: Former Tobacco user Tobacco use type: Cigarette e-Cigarette/Vaping Use: Never Used Second Hand Smoke Exposure: No service: No Current occupational status: employed Cognitive needs: No Hearing needs: No Vision needs: No Questionnaire PHQ-9 Over the last 2 weeks, how often have you been bothered by any of the following problems? 1. Little interest or pleasure in doing things: not at all 2. Feeling down, depressed, or hopeless: not at all 3. Trouble falling or staying asleep, or sleeping too much: not at all 4. Feeling tired or having little energy: not at all 5. Poor appetite or overeating: not at all 6. Feeling bad about yourself - or that you are a failure or have let yourself or your family down: not at all 7. Trouble concentrating on things, such as reading the newspaper or watching television: not at all 8. Moving or speaking so slowly that other people could have noticed. Or the opposite - being so fidgety or restless that you have been moving around a lot more than usual: not at all 9. Thoughts that you would be better off or of hurting yourself in some way: not at all Total score: 0 Depression Screening Interpretation: Negative Depression Screening Done: Yes Source: Developed by Drs. Easton Callahan, Ariana Marshall, Canelo Del Angel and colleagues, with an educational charles from [employer]. Thrive Questionnaire Date Thrive assessed: 10/31/24 I am a: Patient What is your living situation today?: I have a steady place to live Within the past 12 months, did the food you bought not last and you didn't have the money to get more?: Never true Within the past 12 months, did you worry whether your food would run out before you got money to buy more?: Never true Do you have trouble paying for medicines?: No Do you have trouble getting transportation to medical appointments?: No Do you have trouble paying your heating and electricity bill?: No Do you have trouble taking care of your child, family member or friend?: No Do you have trouble with day-to-day activities such as bathing, preparing meals, shopping, managing finances, etc.?: No Are you currently unemployed and looking for a job?: No Are you interested in more education?: No Please select the resources that you would like help with: None Currently or been in a relationship where the following occur: No concerns reported THRIVE Score: 0 AUDIT C Alcohol Use Questionnaire (AUDIT-C) 1. How often do you have a drink containing alcohol?: Monthly or less 2. How many drinks containing alcohol do you have on a typical day when you are drinking?: 3 or 4 3. How often do you have six or more drinks on one occasion?: Monthly Total Score: 4 JOVANNI-7 AMB Questionnaire JOVANNI-7 Date JOVANNI - 7 assessed: 10/31/24 Feeling nervous, anxious, or on edge: 0 = Not at all Not being able to stop or control worryin = Not at all Worrying too much about different things: 0 = Not at all Trouble relaxin = Not at all Being so restless that it is hard to sit still: 0 = Not at all Becoming easily annoyed or irritable: 0 = Not at all Feeling afraid as if something awful might happen: 0 = Not at all Total JOVANNI-7 score (0-4 normal; 5-9 mild; 10-14 moderate; 15-21 severe): 0 Source: Developed by Drs. Easton Callahan, Ariana Marshall, Canelo Del Angel and colleagues, with an educational charles from [employer]. Physical exam (Primary Care) Vital Signs: Last Vital Signs Pulse 97 10/31/24 09:45 BP 132/80 10/31/24 09:45 Pulse Ox 96 10/31/24 09:45 Oxygen Delivery Method Room Air 10/31/24 09:45 BMI result Body Mass Index 37.8 Tobacco/Smoking Status: Tobacco use Status Tobacco use date assessed 10/31/24 10/31/24 09:48 Patient Tobacco Use Status Former Tobacco user 10/31/24 09:48 Tobacco use type Cigarette 10/31/24 09:48 e-Cigarette/Vaping Use Never Used 10/31/24 09:48 PHQ-9: PHQ-9 Score PHQ-9: Total score 0 10/31/24 10:01 Depression Screening Interpretation: Negative Thrive Assessment: Date of Thrive Assessment Date Thrive assessed 10/31/24 10/31/24 09:48 Currently or been in a relationship where the following occur: No concerns reported Const General: alert; No acute distress Eyes Conjunctivae: conjunctivae normal Resp Auscultation: clear to auscultation bilaterally Cardio Rate: regular rate Rhythm: regular rhythm GI Inspection: Yes normal to inspection Extrem General: Yes normal to inspection and No edema Coding Level of Care Code Est Pt Level 4 (64646) Complex EM visit Add On G2211 Diagnoses Type 2 diabetes mellitus with hyperglycemia, without long-term current use of insulin E11.65 Diabetes mellitus rn long term care insulin use: without [facility] use Essential hypertension I10 Hypertension type: essential hypertension Hypercholesterolemia E78.00 Obesity (BMI 30-39.9) E66.9 Closed nondisplaced fracture of sixth cervical vertebra, unspecified fracture morphology, sequela S12.501S Encounter type: sequela Fracture alignment: nondisplaced Fracture morphology: unspecified fracture morphology Fracture type: closed Assessment & Plan Assessment & Plan (1) Type 2 diabetes mellitus with hyperglycemia: Comment[facility] Code[facility]s): E11.65 - Type 2 diabetes mellitus with hyperglycemia Category: Medical Qualifiers: Diabetes mellitus [place] [facility] insulin use: without rn long term care use Qualified Code(s): E11.65 - Type 2 diabetes mellitus with hyperglycemia Plan: Decrease the amount of carbohydrate intake, pasta, bread, rice and potatoes are all sugar and that is aside from all the sweet stuff, remember that fruits are good but they are Sweet also. Hemoglobin A1c goal of less than 6.5. Patient is on Basaglar 27 units once a day metformin a 1000 mg twice a day. (2) Hypertension: Code(s): I10 - Essential (primary) hypertension Category: Medical Qualifiers: Hypertension type: essential hypertension Qualified Code(s): I10 - Essential (primary) hypertension Plan: Continue with blood pressure medication. Decrease salt intake and exercise losartan 100 mg once a day hydrochlorothiazide 12.5 mg once a day (3) Hypercholesterolemia: Code(s): E78.00 - Pure hypercholesterolemia, unspecified Category: Medical Plan: Avoid fried foods, chicken skin, eggs, butter margarine, pastries and meat. Be it pork or beef they have a lot of cholesterol LDL goal of less than 100 and triglyceride of less than 150 on atorvastatin 10 mg once a day (4) Obesity (BMI 30-39.9): Code(s): E66.9 - Obesity, unspecified Category: Medical Plan: Diet and exercise (5) C6 cervical fracture: Comment: March 2019 Code(s): S12.500A - Unspecified displaced fracture of sixth cervical vertebra, initial encounter for closed fracture Category: Medical Qualifiers: Encounter type: sequela Fracture alignment: nondisplaced Fracture morphology: unspecified fracture morphology Fracture type: closed Qualified Code(s): S12.501S - Unspecified nondisplaced fracture of sixth cervical vertebra, sequela Plan: Narcotic pain meds: Is being prescribed with the understanding that these medications are potentially addictive and should be used only when absolutely necessary and must always be secured. Any remaining pills should be safely disposed off appropriately. Patient is advised that narcotics can impaired judgment and one should not drive or operate heavy machinery while taking these medications. Never share these medications with anybody and do not leave them unattended. They will not be replaced under any circumstances. Plan History of Present Illness The patient is a 58-year-old male presenting with a follow-up visit for chronic management of diabetes mellitus, essential hypertension, hypercholesterolemia, and pain management associated with a history of C6 cervical fracture. Diabetes mellitus has been managed with Basaglar 27 units once daily, Metformin 1000 mg twice daily, and a goal hemoglobin A1c of less than 6.5%. Recent labs indicate the hemoglobin A1c is at goal with a reading of 6.5%. The patient's fasting blood sugar is reported at 110 mg/dL. Essential hypertension is managed with Losartan 100 mg once daily and Hydrochlorothiazide 12.5 mg once daily, with blood pressure reportedly well controlled. Hypercholesterolemia treatment includes Atorvastatin 10 mg once daily, with the current LDL level of 87 mg/dL meeting the target goal of less than 100 mg/dL. Non-alcoholic fatty liver disease is evidenced by mildly elevated liver function tests. The patient is also addressing weight management with Ozempic and has been advised on the potential for dosage adjustment based on weight changes. Past intervention includes a previous colonoscopy in 2022, identifying tubular adenoma necessitating regular surveillance. The patient follows a diet and exercise regimen and shows adherence to the current medication plan. Chronic pain related to the cervical fracture is managed with daily exercises to maintain mobility and avoid exacerbation of symptoms. There is no acute pain reported at the moment. Plan 1. 5%: - Maintain management of essential hypertension with Losartan and Hydrochlorothiazide; continue monitoring blood pressure. - Continue treatment for hypercholesterolemia with Atorvastatin, aiming to keep LDL below target. Discuss ongoing adherence to diet and exercise for optimal results. - Monitor liver function considering prior indication of non-alcoholic fatty liver disease; advise on lifestyle modifications to manage liver health. - Encourage continued daily exercises for cervical fracture rehabilitation to facilitate pain management and functional mobility. - Refill submitted for Ozempic; monitor weight response and consider dosage adjustment if weight is not reduced after three weeks. - Reinforce importance of hydration and maintain regular check of electrolytes, considering all recent lab results show normal kidney function and electrolyte levels. 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 Patient was informed and verbally consented to the use of an ambient scribe for clinic note documentation during this visit. Medications: New semaglutide (Ozempic) 1 mg (0.75 mL) subcut QWEEK 3 mL 4RF
[2024-10-31 09:45] VITALS: BP 132/80; PULSE 97; O2SAT 96; BMI 37.8
== END 2024-10-31 10:09 | disposition home or self-care (01) ==
PROVIDERS: PCP Internal Medicine; Visit Provider Internal Medicine
DX: E11.65 Type 2 diabetes mellitus with hyperglycemia (principal); I10 Essential (primary) hypertension; Z68.37 Body mass index [BMI] 37.0-37.9, adult; E66.9 Obesity, unspecified; E78.00 Pure hypercholesterolemia, unspecified; S12.501S Unspecified nondisplaced fracture of sixth cervical vertebra, sequela

== ENCOUNTER → 2024-10-31 09:25 | Outpatient (BNVA) | payer MEDICARE, SELFPAY | PROVIDERS: PCP Internal Medicine; Visit Provider Internal Medicine | DX: E11.65 Type 2 diabetes mellitus with hyperglycemia (principal); E78.00 Pure hypercholesterolemia, unspecified; I10 Essential (primary) hypertension; E66.9 Obesity, unspecified; S12.501S Unspecified nondisplaced fracture of sixth cervical vertebra, sequela | CPT/HCPCS: 99212 ==

== ENCOUNTER 2025-02-06 09:31 | Outpatient (AMB) | payer MEDICARE, SELFPAY ==
[2025-02-06 09:34] VITALS: BP 134/86; PULSE 84; O2SAT 98; BMI 36.8
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
== END 2025-02-06 10:03 | disposition home or self-care (01) ==
LOC: HO.HMCH 09:32
PROVIDERS: PCP Internal Medicine; Visit Provider Internal Medicine
DX: E11.65 Type 2 diabetes mellitus with hyperglycemia (principal); E66.9 Obesity, unspecified; Z68.36 Body mass index [BMI] 36.0-36.9, adult; I10 Essential (primary) hypertension; E78.00 Pure hypercholesterolemia, unspecified; S12.501S Unspecified nondisplaced fracture of sixth cervical vertebra, sequela; H92.01 Otalgia, right ear

== ENCOUNTER → 2025-02-06 09:31 | Outpatient (BNVA) | payer MEDICARE, SELFPAY | PROVIDERS: PCP Internal Medicine; Visit Provider Internal Medicine | DX: I10 Essential (primary) hypertension (principal); E78.00 Pure hypercholesterolemia, unspecified; E11.65 Type 2 diabetes mellitus with hyperglycemia; E66.9 Obesity, unspecified; S12.501S Unspecified nondisplaced fracture of sixth cervical vertebra, sequela; H92.01 Otalgia, right ear; X58.XXXS Exposure to other specified factors, sequela | CPT/HCPCS: 83036; 96127; 99212 ==

== ENCOUNTER 2025-05-22 10:05 | Outpatient (AMB) | payer MEDICARE, SELFPAY ==
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
[2025-05-22 10:09] VITALS: BP 152/88; PULSE 83; TEMP 36.4; O2SAT 98; BMI 37.2
[2025-05-22 10:55] VITALS: BP 138/70
== END 2025-05-22 11:03 | disposition home or self-care (01) ==
LOC: HO.HMCH 10:06
PROVIDERS: PCP Internal Medicine; Visit Provider Internal Medicine
DX: E11.65 Type 2 diabetes mellitus with hyperglycemia (principal); E66.9 Obesity, unspecified; Z68.37 Body mass index [BMI] 37.0-37.9, adult; I10 Essential (primary) hypertension; E78.00 Pure hypercholesterolemia, unspecified; S12.501S Unspecified nondisplaced fracture of sixth cervical vertebra, sequela

== ENCOUNTER → 2025-05-22 10:05 | Outpatient (BNVA) | payer MEDICARE, SELFPAY | PROVIDERS: PCP Internal Medicine; Visit Provider Internal Medicine | DX: E11.65 Type 2 diabetes mellitus with hyperglycemia (principal); E66.9 Obesity, unspecified; I10 Essential (primary) hypertension; E78.00 Pure hypercholesterolemia, unspecified; S12.501S Unspecified nondisplaced fracture of sixth cervical vertebra, sequela; X58.XXXS Exposure to other specified factors, sequela; Z68.37 Body mass index [BMI] 37.0-37.9, adult | CPT/HCPCS: 83036; 96127; 99212 ==